=== PATIENT | female | born 1975 | race Caucasian/White ===

== ENCOUNTER 2018-02-28 13:46 | Emergency (ER) | payer BC ==
--- NOTE | 2018-02-28 13:58 | EDPHY ---
H & P Time Seen by Provider: 02/28/18 13:56 HPI/ROS: CHIEF COMPLAINT: Requesting Vivitrol injection HISTORY OF PRESENT ILLNESS: The patient presents to the ED requesting a Vivitrol injection. She had been on Suboxone chronically which she discontinued 7 days ago. She is currently under the care of a new primary care provider in [place]. She has been prescribed gabapentin for her pain. She is having symptoms of fairly significant nausea and diarrhea. She was referred to the emergency department by her primary care provider for consideration of a Vivitrol injection. REVIEW OF SYSTEMS: A comprehensive 10 point review of systems is otherwise negative aside from elements mentioned in the history of present illness. Source: Patient Exam Limitations: No limitations - Medical/Surgical History PMH: Past medical history: Chronic pain, history of gastric bypass - Physical Exam Exam: General Appearance: Alert, no distress Eyes: Pupils equal and round no pallor or injection ENT, Mouth: Mucous membranes moist Respiratory: There are no retractions, lungs are clear to auscultation Cardiovascular: Regular rate and rhythm Gastrointestinal: Abdomen is soft and nontender, no masses, bowel sounds normal Neurological: A&O, normal motor function, normal sensory exam, normal cranial nerves Skin: Warm and dry, no rashes Musculoskeletal: Neck is supple nontender Extremities: symmetrical, full range of motion Constitutional: Initial Vital Signs Temperature (C) 36.2 C 02/28/18 13:56 Heart Rate 79 02/28/18 13:56 Respiratory Rate 16 02/28/18 13:56 Blood Pressure 132/80 H 02/28/18 13:56 O2 Sat (%) 99 02/28/18 13:56 O2 Delivery Mode Room Air Allergies/Adverse Reactions: levetiracetam [From Keppra] Allergy (Verified 02/28/18 13:56) Home Medications: Medication Instructions Recorded Clonazepam 0.5 mg HS 02/28/18 Gabapentin 02/28/18 Basin Operator Thyroid 02/28/18 Suboxone 8 mg-2 mg SL Film 02/28/18 Medical Decision Making ED Course/Re-evaluation: The patient has been informed that [facility] does offer a Vivitrol therapy for narcotic dependence. She will be referred to the [facility] for further assistance. She has no evidence of a life-threatening withdrawal in the emergency department today. Departure - Departure Disposition: Home, Routine, Self-Care Clinical Impression: Narcotic withdrawal Condition: Good Instructions: Opioid Withdrawal (ED) Additional Instructions: 1. Please go to the [facility] as they do offer the withdrawal injections. Referrals: [facility] [Outside] - As per Instructions
[2018-02-28 14:01] VITALS: BP 132/80
== END 2018-02-28 14:42 | disposition home or self-care (01) ==
DX: F11.23 Opioid dependence with withdrawal (principal)

== ENCOUNTER → 2019-01-29 | Outpatient (CLI) | payer BC, MEDICAID | LOC: GIMAGING 14:44 | PROVIDERS: ATTEND Family Medicine | DX: K59.00 Constipation, unspecified (principal) | CPT/HCPCS: 74018-PO ==